=== PATIENT | female | born 1975 | race African-American/Black ===

== ENCOUNTER 2019-09-23 08:37 | Emergency (ER) | payer BC, OTHER ==
[~2019-09-23] VITALS: Ht 167.6 cm; Wt 84.4 kg
[~2019-09-23 08:37] MED LIST: NOHOMEMEDICATIONS; NORCO 5-325 TA1 EACH PO; PEPCID20 MG PO; PREDNISONE 20 M20 MG PO; VISTARIL 25 MG25 M1 PO; ZOFRAN ODT4 MG PO
[2019-09-23 09:12] LABS: HEMATOCRIT 42.1 % (37.0-47.0); MCH 27.8 pg (26.0-34.0); MCHC 33.3 g/dL (28.0-37.0); MCV 83.4 fL (80.0-100.0); RBC 5.05 mil/uL (4.20-5.00); RDW 14.1 % (10.5-14.5); WBC 9.7 thou/uL (4.0-11.0)
[2019-09-23 09:14] LABS: CALCIUM 9.5 mg/dL (8.5-10.1); CREATININE 0.9 mg/dL (0.6-1.0); POTASSIUM 3.9 mmol/L (3.5-5.1)
[2019-09-23 09:20] LABS: ALBUMIN 4.2 g/dL (3.4-5.0); TOTAL BILIRUBIN 0.7 mg/dL (<0.1-1.0); TOTAL PROTEIN 8.3 g/dL (6.4-8.2)
[2019-09-23] MEDS ORDERED: ZOFRAN ODT4 MG PO (11:22)
[2019-09-23 11:30] VITALS: BP 107/53
== END 2019-09-23 11:58 | disposition home or self-care (01) ==
LOC: ER 08:37
PROVIDERS: Student in an Organized Health Care Education/Training Program
DX: R11.2 Nausea with vomiting, unspecified (principal); Z88.2 Allergy status to sulfonamides; Z88.8 Allergy status to other drugs, medicaments and biological substances